=== PATIENT | female | born 2000 | race Hispanic/Latino ===

== ENCOUNTER 2019-02-14 21:42 | Emergency (ER) | payer SELFPAY ==
[2019-02-14 23:16] LABS: Bacteria,Urine 1+ /HPF (Negative); Bilirubin,Urine NEG (Negative); Blood,Urine LG (Negative); Color,Urine Yellow (Yellow); Hyaline Casts,Urine 1 /LPF; Mucus,Urine FEW /HPF; Protein,Urine <15 mg/dL mg/dL (Negative); Urobilinogen,Urine < 2.0 mg/dL (<2.0)
[2019-02-14 23:21] LABS: Hematocrit 40.9 % (30.3-42.9); Hemoglobin 13.7 gm/dl (10.1-14.3); Lymphocytes % (Auto) 28.6 % (13.4-35.0); Mean Corpuscular HGB Conc 33 % (30-34); Mean Corpuscular Volume 82 fl (79-97); Monocytes % (Auto) 5.5 % (0.0-7.3); Platelet Count 263 K/mm3 (140-440); Red Blood Count 4.98 M/mm3 (3.65-5.03); Red Cell Distribution Width 15.4 % (13.2-15.2)
[2019-02-14 23:22] LABS: Basophils # (Auto) 0.1 K/mm3 (0.0-0.1); Basophils % (Auto) 0.5 % (0.0-1.8); Eosinophils # (Auto) 0.2 K/mm3 (0.0-0.4); Eosinophils % (Auto) 1.5 % (0.0-4.3); Lymphocytes # (Auto) 3.5 K/mm3 (1.2-5.4); Monocytes # (Auto) 0.7 K/mm3 (0.0-0.8)
--- NOTE | 2019-02-15 00:07 | Ultrasound Report ---
US OB <= 14 weeks fetus, US OB transvaginal INDICATION / CLINICAL INFORMATION: PAIN,VAGINAL BLEED WITH . COMPARISON: None available. FINDINGS: The uterus measures 5 cm. Endometrial stripe thickness is 4 mm. No evidence of intrauterine . The ovaries were not identified. IMPRESSION: 1. No evidence of intrauterine . Signer Name: Beni Bess MD Signed: 02/15/2019 12:03 AM Workstation Name: [id number]
[2019-02-15] MEDS ORDERED: PERCOCET 5/325 PO ONE (00:42)
[2019-02-15] MEDS ORDERED: ZOFRAN ODT PO ONE (00:42)
[2019-02-15] MEDS ORDERED: VISTARIL PO ONE (00:42)
[2019-02-15] MEDS ORDERED: KEFLEX PO ONE (00:42)
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
[2019-02-15 01:47] VITALS: BP 115/64
== END 2019-02-15 01:45 | disposition home or self-care (01) ==
LOC: ED 21:42
DX: N39.0 Urinary tract infection, site not specified (principal); N93.8 Other specified abnormal uterine and vaginal bleeding
CPT/HCPCS: 36415; 76801; 76817; 81001; 84702; 84703; 85025; 86900; 86901; 87076; 87086; 87186; Q0162; Q0177